=== PATIENT | male | born 1995 | race Caucasian/White ===

== ENCOUNTER 2016-12-14 13:39 | Emergency (ER) | payer BC ==
[~2016-12-14] VITALS: Ht 179.1 cm; Wt 77.2 kg
[2016-12-14 13:47] VITALS: BP 120/80; PULSE 99; TEMP 36.9; O2SAT 96; Ht 179.1 cm; Wt 77.2 kg
[2016-12-14] MEDS ORDERED: XYLOCAINE 1%/SOD BICARB 20 ML VIAL INFIL ONE (14:00)
--- NOTE | 2016-12-14 14:34 | EMERGENCY ROOM VISIT NOTE ---
History First contact with patient: 13:49 Chief Complaint: LACERATION/CUT (SUT/DERMABOND) Stated Complaint: RIGHT FOOT LACERATION Nursing Triage Summary: Patient has laceration to left foot from glass states it happened at 1230 History of Present Illness The patient is a 21 year old male who presents to the Emergency Room with complaints of a laceration to his right foot. The patient reports that he accidentally stepped on glass approximately one half hour ago. He denies any significant bleeding or pain. Tetanus immunization is up-to-date. Review of Systems 6 system review was performed and was negative except for pertinent positives and negatives as indicated in history of present illness Past Medical/Surgical History Medical Problems: (1) No significant past medical history Surgical Problems: (1) No history of previous surgery Family History No significant family history Social History Smoking Status: Never Smoker Alcohol Use: occasionally Marital Status: single Occupation Status: [employer] student Current/Historical Medications No Active Prescriptions or Reported Meds Allergies Coded Allergies: No Known Allergies (Unverified , 12/14/16) Physical Exam Vital Signs Date Time Temp Pulse Resp B/P Pulse Ox O2 Delivery O2 Flow Rate FiO2 12/14/16 13:47 36.9 99 18 120/80 96 Room Air Physical Exam CONSTITUTIONAL: Healthy and well nourished. Alert and oriented X 3 with positive affect. HEENT: Normocephalic, atraumatic. Pupils equal, round and reactive. NECK: Full active range of motion without discomfort. MUSCULOSKELETAL: Examination shows a 3 cm laceration over the lateral aspect of the foot. No active bleeding noted. The wound looks clean. Capillary refill of the toes is less than 2 seconds. INTEGUMENTARY: No rash or other significant dermatologic conditions noted. NEUROLOGIC: Right foot and toes are sensory intact. Medical Decision & Procedures Procedure The patient provided verbal consent for laceration repair under local anesthesia. Laceration repair was performed by our physician judicial assistant student under my direct supervision. Using buffered 1% lidocaine without epinephrine, good local anesthesia was administered. The area was then prepped with iodine, then the wound was copiously pressure irrigated with normal saline. Sterile field was created. The wound was thoroughly probed to show no evidence for underlying foreign bodies. The wound was then approximated using 4-0 nylon simple interrupted sutures. Bacitracin dressing was applied. ED Course Patient history and physical exam were performed. Nurse's notes were reviewed. Laceration repair was performed under local anesthesia. The patient was provided additional verbal and written wound care instructions. Ice and elevation for swelling. Ibuprofen or Tylenol as needed for pain. Suture removal in 12-14 days, or seek reevaluation sooner for any signs of wound infection. The patient was happy with plan care, voiced understanding of all discharge instructions, and denied any pain at the time of discharge. Medical Decision Impression Primary Impression: Laceration of right foot Departure Information Dispostion Home / Self-Care Prescriptions No Active Prescriptions or Reported Meds Forms HOME CARE DOCUMENTATION FORM, IMPORTANT VISIT INFORMATION Patient Instructions My [facility] Additional Instructions Keep wound clean and dry. Do not allow any crusting or dried blood to accumulate on sutures. If this occurs, use a 1:1 solution of hydrogen peroxide/ water on a Q-tip to clean the wound. Use an antibiotic ointment for 3-4 days, then let wound dry. Suture removal in 12-14 days. Return sooner for any signs of infection (increasing redness, swelling, drainage). Ice and elevate as needed and for swelling and pain. Ibuprofen 600 mg and/or Tylenol 1000 mg every 6 hrs if needed for additional pain relief. Problem Qualifiers Primary Impression: Laceration of right foot Encounter type: initial encounter Qualified Codes: S91.311A - Laceration without foreign body, right foot, initial encounter
== END 2016-12-14 15:00 | disposition home or self-care (01) ==
LOC: C.EDB 13:41 → C.EDD 15:00
DX: S91.311A Laceration without foreign body, right foot, initial encounter (principal); W25.XXXA Contact with sharp glass, initial encounter